=== PATIENT | female | born 2000 | race Two or more races ===

== ENCOUNTER 2023-04-01 11:05 | Emergency (ER) | payer OTHER ==
[~2023-04-01] VITALS: Ht 157.5 cm; Wt 69.4 kg
[2023-04-01 11:14] VITALS: BP 122/80
--- NOTE | 2023-04-01 11:16 | NUR ---
The patient's care was reviewed and supervised by JACKI MORRIS RN.
[2023-04-01] MEDS ORDERED: AMOX500C25 PO (12:19)
[2023-04-01] MEDS ORDERED: OFLO5SOL27 LEFT EAR (12:19)
[2023-04-01] MEDS ORDERED: IBUP-2213 PO (12:25)
--- NOTE | 2023-04-01 12:35 | NUR ---
Patient's heart rate is 124. Per PA Marx ok to discharge.
--- NOTE | 2023-04-01 12:43 | NUR ---
Patient discharged with v/s stable. Written and verbal after care instructions given and explained. Patient verbalized understanding. Ambulatory with steady gait. All questions addressed prior to discharge. Advised to follow up with PMD.
== END 2023-04-01 12:44 | disposition home or self-care (01) ==
LOC: MED 11:05
DX: H60.92 Unspecified otitis externa, left ear (principal); Z79.899 Other long term (current) drug therapy
CPT/HCPCS: 99283